=== PATIENT | female | born 1940 | race Caucasian/White ===

== ENCOUNTER 2021-11-26 13:18 | Observation (INO) ==
[2021-11-26] MEDS ORDERED: 0.9 % Sodium Chloride 1,000 ML IVC ONE (13:49)
[2021-11-26 14:30] LABS: Basophils % 0.5 %; Eosinophils % 0.4 %; Hematocrit 46.4 % (35.3-44.9); Hemoglobin 15.1 g/dL (11.5-15.4); Immature Granulocytes % 0.5 % (0-4); Lymphocytes # 1.6 K/mcL (0.6-4.6); Mean Corpuscular HGB Conc 32.5 g/dL (31.6-35.5); Mean Corpuscular Volume 101.3 fL (83.0-100.0); Mean Platelet Volume 9.9 fL (9.4-12.4); Monocytes # 0.6 K/mcL (0.0-1.3); Monocytes % 11.4 %; Neutrophils # 3.3 K/mcL (1.6-8.9); Platelet Count 270 K/mcL (140-400); Red Blood Count 4.58 M/mcL (3.82-4.97); Segmented Neutrophils % 58.2 %; White Blood Count 5.6 K/mcL (4.3-11.1)
[2021-11-26 14:50] LABS: Alanine Aminotransferase 15 Units/L (7-52); Albumin 3.9 g/dL (3.5-5.7); Albumin/Globulin Ratio 1.5 (1.1-2.2); Alkaline Phosphatase 67 Units/L (34-104); Aspartate Amino Transferase 24 Units/L (13-39); BUN/Creatinine Ratio 17 (6-26); Bilirubin,Direct 0.1 mg/dL (0.0-0.2); Bilirubin,Indirect 0.4 mg/dL (0.0-1.0); Bilirubin,Total 0.5 mg/dL (0.3-1.0); Blood Urea Nitrogen 34 mg/dL (8-23); Calcium 9.3 mg/dL (8.6-10.3); Carbon Dioxide 23 mEq/L (23-29); Chloride 103 mEq/L (98-107); Globulin 2.6 g/dL (2.4-3.5); Glucose 121 mg/dL (70-105); Osmolality,Calculated 287 (280-300); Potassium 5.4 mEq/L (3.5-5.1); Sodium 134 mEq/L (136-145); Total Protein 6.5 g/dL (6.4-8.9); Troponin I < 0.03 ng/mL (< 0.04); eGFR For African Americans 29 (> 60); eGFR For Non-African Americans 24 (> 60)
[2021-11-26] MEDS ORDERED: Ondansetron 4 MG/2 ML VIAL IVP PRN (15:10)
[2021-11-26] MEDS ORDERED: Naloxone 0.4 MG/ML INJ IVP PRN (15:10)
[2021-11-26] MEDS ORDERED: Acetaminophen 325 MG TABLET PO PRN (15:10)
[2021-11-26] MEDS ORDERED: Melatonin 3 MG TABLET PO PRN (15:10)
[2021-11-26] MEDS ORDERED: QUEtiapine Fumarate 25 MG TABLET PO PRN (15:47)
[2021-11-26 16:15] LABS: INR 7.7
[2021-11-26] MEDS: 0.9 % Sodium Chloride 1,000 ML IVC SCH (17:15)
[2021-11-26] MEDS ORDERED: Warfarin perPT PO PRN (18:00)
[2021-11-26 19:00] LABS: Bilirubin,Urine Negative (Negative); Blood,Urine Negative (Negative); Clarity,Urine Cloudy (Clear); Color,Urine Yellow (Yellow); Glucose,Urine (UA) Normal (Normal); Ketones,Urine Trace mg/dL (Negative); Leukocyte Esterase,Urine Moderate (Negative); Nitrite,Urine Positive (Negative); PH,Urine 5.5 pH Units (5.0-8.0); Protein,Urine Negative (Neg-Trace); Specific Gravity,Urine 1.025 (1.010-1.025); Urobilinogen,Urine Normal (Normal)
[2021-11-26 19:06] LABS: Bacteria,Urine Many per hpf (None-Few); RBC,Urine 0-3 per hpf (0-3); Squamous Epithelial Cell,Urine Moderate per hpf (None-Few); WBC,Urine 50-100 per hpf (0-3)
[2021-11-26] MEDS: Metoprolol 100 MG TABLET PO SCH (21:59)
[2021-11-27] MEDS: 0.9 % Sodium Chloride 1,000 ML IVC SCH (05:11)
[2021-11-27] MEDS: Levothyroxine 25 MCG TABLET PO SCH (05:30)
[2021-11-27 07:46] LABS: Basophils % 0.8 %; Eosinophils % 0.5 %; Hematocrit 44.8 % (35.3-44.9); Hemoglobin 14.4 g/dL (11.5-15.4); Immature Granulocytes % 0.5 % (0-4); Lymphocytes # 1.5 K/mcL (0.6-4.6); Lymphocytes % 37.1 %; Mean Corpuscular HGB Conc 32.1 g/dL (31.6-35.5); Mean Corpuscular Hemoglobin 32.9 pg (28.0-33.3); Mean Corpuscular Volume 102.3 fL (83.0-100.0); Mean Platelet Volume 9.9 fL (9.4-12.4); Monocytes # 0.4 K/mcL (0.0-1.3); Monocytes % 10.6 %; Platelet Count 221 K/mcL (140-400); Red Blood Count 4.38 M/mcL (3.82-4.97); Red Cell Distribution Width 12.8 % (11.5-14.5); Segmented Neutrophils % 50.5 %
[2021-11-27 08:06] LABS: Calcium 8.7 mg/dL (8.6-10.3); Magnesium 1.7 mg/dL (1.6-2.6)
[2021-11-27] MEDS: Multivit/Ca/Min/Fe/FA 1 TAB TABLET PO SCH (08:13)
[2021-11-27] MEDS: Cyanocobalamin (B-12) 1,000 MCG TABLET PO SCH (08:14)
[2021-11-27] MEDS: Metoprolol 100 MG TABLET PO SCH ×2 (08:14→20:29)
[2021-11-27] MEDS: amLODIPine 5 MG TABLET PO SCH (08:14)
[2021-11-27 08:45] LABS: INR 6.5; Prothrombin Time 71.1 Seconds (9.4-12.1)
[2021-11-28] MEDS: Levothyroxine 25 MCG TABLET PO SCH (06:14)
[2021-11-28 07:32] VITALS: O2SAT 94
[2021-11-28 08:01] LABS: INR 2.7; Prothrombin Time 29.5 Seconds (9.4-12.1)
[2021-11-28] MEDS: Multivit/Ca/Min/Fe/FA 1 TAB TABLET PO SCH (09:27)
[2021-11-28] MEDS: Metoprolol 100 MG TABLET PO SCH (09:27)
[2021-11-28] MEDS: amLODIPine 5 MG TABLET PO SCH (09:27)
[2021-11-28] MEDS: Cyanocobalamin (B-12) 1,000 MCG TABLET PO SCH (09:27)
[2021-11-28 11:13] VITALS: BP 126/70; PULSE 80; RESP 16; TEMP 98.4
[2021-11-28] MEDS ORDERED: Nitrofurantoin (BID) 100 MG CAPSULE PO SCH (17:00)
== END 2021-11-28 16:39 | disposition other institution (70) ==
LOC: EMEROOPIK 13:18 → INPPIK 13:18
PROVIDERS: ADMIT Internal Medicine; ATTEND Internal Medicine

== ENCOUNTER 2021-11-28 15:08 | Inpatient (IN) ==
[2021-11-28] MEDS ORDERED: Furosemide 40 MG TABLET PO PRN (16:17)
[2021-11-28] MEDS ORDERED: Warfarin perPT PO PRN (18:00)
[2021-11-28] MEDS: Metoprolol 100 MG TABLET PO SCH (21:23)
[2021-11-28] MEDS: Amoxicillin 500 MG CAPSULE PO SCH (21:23)
[2021-11-29] MEDS: Levothyroxine 25 MCG TABLET PO SCH (06:00)
[2021-11-29 07:18] LABS: Basophils % 0.6 %; Eosinophils # 0.1 K/mcL (0.0-0.6); Hematocrit 43.5 % (35.3-44.9); Hemoglobin 14.3 g/dL (11.5-15.4); Immature Granulocytes % 0.4 % (0-4); Lymphocytes # 1.8 K/mcL (0.6-4.6); Lymphocytes % 35.9 %; Mean Corpuscular HGB Conc 32.9 g/dL (31.6-35.5); Mean Corpuscular Hemoglobin 33.2 pg (28.0-33.3); Mean Corpuscular Volume 100.9 fL (83.0-100.0); Mean Platelet Volume 9.6 fL (9.4-12.4); Monocytes # 0.4 K/mcL (0.0-1.3); Neutrophils # 2.6 K/mcL (1.6-8.9); Platelet Count 231 K/mcL (140-400); Red Blood Count 4.31 M/mcL (3.82-4.97); Red Cell Distribution Width 12.6 % (11.5-14.5); Segmented Neutrophils % 54.1 %; White Blood Count 4.9 K/mcL (4.3-11.1)
[2021-11-29 07:35] LABS: BUN/Creatinine Ratio 12 (6-26); Blood Urea Nitrogen 12 mg/dL (8-23); Calcium 9.1 mg/dL (8.6-10.3); Carbon Dioxide 24 mEq/L (23-29); Chloride 107 mEq/L (98-107); Glucose 107 mg/dL (70-105); Osmolality,Calculated 284 (280-300); Potassium 3.6 mEq/L (3.5-5.1); Sodium 137 mEq/L (136-145); eGFR For African Americans > 60 (> 60); eGFR For Non-African Americans 55 (> 60)
[2021-11-29 07:38] LABS: INR 1.8; Prothrombin Time 20.5 Seconds (9.4-12.1)
[2021-11-29] MEDS: amLODIPine 5 MG TABLET PO SCH (09:15)
[2021-11-29] MEDS: Amoxicillin 500 MG CAPSULE PO SCH ×3 (09:15→21:36)
[2021-11-29] MEDS: Cyanocobalamin (B-12) 1,000 MCG TABLET PO SCH (09:16)
[2021-11-29] MEDS: Metoprolol 100 MG TABLET PO SCH ×2 (09:16→21:36)
[2021-11-29] MEDS: Topiramate 25 MG TABLET PO SCH (09:16)
[2021-11-29] MEDS: Multivit/Ca/Min/Fe/FA 1 TAB TABLET PO SCH (09:16)
[2021-11-29 09:56] LABS: C-Reactive Protein < 5 mg/L (Less than 10)
[2021-11-29] MEDS ORDERED: *HR* Warfarin 1 MG TABLET PO ONE (18:00)
[2021-11-30] MEDS: Levothyroxine 25 MCG TABLET PO SCH (05:44)
[2021-11-30 07:47] LABS: INR 1.5; Prothrombin Time 16.2 Seconds (9.4-12.1)
[2021-11-30] MEDS: Amoxicillin 500 MG CAPSULE PO SCH ×3 (08:21→20:31)
[2021-11-30] MEDS: Metoprolol 100 MG TABLET PO SCH ×2 (08:21→20:31)
[2021-11-30] MEDS: Topiramate 25 MG TABLET PO SCH (08:22)
[2021-11-30] MEDS: Cyanocobalamin (B-12) 1,000 MCG TABLET PO SCH (08:22)
[2021-11-30] MEDS: amLODIPine 5 MG TABLET PO SCH (08:22)
[2021-11-30] MEDS: Multivit/Ca/Min/Fe/FA 1 TAB TABLET PO SCH (08:23)
[2021-11-30] MEDS ORDERED: *HR* Warfarin 2 MG TABLET PO ONE (18:00)
[2021-12-01] MEDS: Levothyroxine 25 MCG TABLET PO SCH (06:11)
[2021-12-01 07:49] LABS: INR 1.3; Prothrombin Time 14.9 Seconds (9.4-12.1)
[2021-12-01] MEDS: Multivit/Ca/Min/Fe/FA 1 TAB TABLET PO SCH (09:12)
[2021-12-01] MEDS: Metoprolol 100 MG TABLET PO SCH ×2 (09:12→21:25)
[2021-12-01] MEDS: Cyanocobalamin (B-12) 1,000 MCG TABLET PO SCH (09:12)
[2021-12-01] MEDS: Topiramate 25 MG TABLET PO SCH (09:12)
[2021-12-01] MEDS: amLODIPine 5 MG TABLET PO SCH (09:12)
[2021-12-01] MEDS: Amoxicillin 500 MG CAPSULE PO SCH ×3 (09:12→21:25)
[2021-12-01] MEDS: Acetaminophen 325 MG TABLET PO PRN (09:21)
[2021-12-01] MEDS ORDERED: Ondansetron Oral Soln 2 MG/2.5 ML ORAL.SYG PO PRN (09:49)
[2021-12-01] MEDS ORDERED: Ondansetron ODT 4 MG TAB.RAPDIS SL PRN (09:56)
[2021-12-01] MEDS ORDERED: *HR* Warfarin 2 MG TABLET PO ONE (18:00)
[2021-12-02] MEDS: Levothyroxine 25 MCG TABLET PO SCH (05:43)
[2021-12-02] MEDS: Multivit/Ca/Min/Fe/FA 1 TAB TABLET PO SCH (08:03)
[2021-12-02] MEDS: Amoxicillin 500 MG CAPSULE PO SCH ×3 (08:03→20:57)
[2021-12-02] MEDS: Topiramate 25 MG TABLET PO SCH (08:03)
[2021-12-02] MEDS: Cyanocobalamin (B-12) 1,000 MCG TABLET PO SCH (08:03)
[2021-12-02] MEDS: Metoprolol 100 MG TABLET PO SCH ×2 (08:04→20:57)
[2021-12-02] MEDS: amLODIPine 5 MG TABLET PO SCH (08:04)
[2021-12-02 08:16] LABS: INR 1.4; Prothrombin Time 15.9 Seconds (9.4-12.1)
[2021-12-02] MEDS ORDERED: *HR* Warfarin 5 MG TABLET PO ONE (18:00)
[2021-12-03] MEDS: Levothyroxine 25 MCG TABLET PO SCH (04:51)
[2021-12-03 08:56] LABS: INR 1.9; Prothrombin Time 21.1 Seconds (9.4-12.1)
[2021-12-03 08:57] LABS: Basophils % 0.5 %; Calcium 9.8 mg/dL (8.6-10.3); Eosinophils # 0.1 K/mcL (0.0-0.6); Eosinophils % 1.2 %; Hematocrit 45.5 % (35.3-44.9); Hemoglobin 14.8 g/dL (11.5-15.4); Immature Granulocytes % 0.4 % (0-4); Lymphocytes # 1.9 K/mcL (0.6-4.6); Lymphocytes % 22.4 %; Mean Corpuscular HGB Conc 32.5 g/dL (31.6-35.5); Mean Corpuscular Hemoglobin 33.7 pg (28.0-33.3); Mean Corpuscular Volume 103.6 fL (83.0-100.0); Mean Platelet Volume 10.1 fL (9.4-12.4); Monocytes # 0.5 K/mcL (0.0-1.3); Monocytes % 6.4 %; Neutrophils # 5.9 K/mcL (1.6-8.9); Platelet Count 293 K/mcL (140-400); Potassium 4.9 mEq/L (3.5-5.1); Red Blood Count 4.39 M/mcL (3.82-4.97); Red Cell Distribution Width 12.5 % (11.5-14.5); Segmented Neutrophils % 69.1 %; White Blood Count 8.5 K/mcL (4.3-11.1)
[2021-12-03] MEDS: Amoxicillin 500 MG CAPSULE PO SCH ×3 (10:19→21:41)
[2021-12-03] MEDS: Topiramate 25 MG TABLET PO SCH (10:19)
[2021-12-03] MEDS: Multivit/Ca/Min/Fe/FA 1 TAB TABLET PO SCH (10:20)
[2021-12-03] MEDS: Cyanocobalamin (B-12) 1,000 MCG TABLET PO SCH (10:20)
[2021-12-03] MEDS: amLODIPine 5 MG TABLET PO SCH (10:20)
[2021-12-03] MEDS: Metoprolol 100 MG TABLET PO SCH ×2 (10:21→21:40)
[2021-12-03] MEDS ORDERED: *HR* Warfarin 2 MG TABLET PO ONE (18:00)
[2021-12-04] MEDS: Levothyroxine 25 MCG TABLET PO SCH (05:05)
[2021-12-04 09:52] LABS: INR 2.1; Prothrombin Time 23.2 Seconds (9.4-12.1)
[2021-12-04] MEDS: Amoxicillin 500 MG CAPSULE PO SCH ×3 (10:01→20:37)
[2021-12-04] MEDS: Topiramate 25 MG TABLET PO SCH (10:01)
[2021-12-04] MEDS: Cyanocobalamin (B-12) 1,000 MCG TABLET PO SCH (10:02)
[2021-12-04] MEDS: Multivit/Ca/Min/Fe/FA 1 TAB TABLET PO SCH (10:02)
[2021-12-04] MEDS: Metoprolol 100 MG TABLET PO SCH ×2 (10:02→20:38)
[2021-12-04] MEDS: amLODIPine 5 MG TABLET PO SCH (10:02)
[2021-12-04] MEDS ORDERED: *HR* Warfarin 3 MG TABLET PO ONE (18:00)
[2021-12-05] MEDS: Levothyroxine 25 MCG TABLET PO SCH ×2 (06:05→10:18)
[2021-12-05 07:58] LABS: INR 1.6; Prothrombin Time 18.3 Seconds (9.4-12.1)
[2021-12-05] MEDS: Multivit/Ca/Min/Fe/FA 1 TAB TABLET PO SCH (10:18)
[2021-12-05] MEDS: Cyanocobalamin (B-12) 1,000 MCG TABLET PO SCH (10:18)
[2021-12-05] MEDS: amLODIPine 5 MG TABLET PO SCH (10:18)
[2021-12-05] MEDS: Topiramate 25 MG TABLET PO SCH (10:18)
[2021-12-05] MEDS: Metoprolol 100 MG TABLET PO SCH ×3 (10:18→23:07)
[2021-12-05] MEDS ORDERED: *HR* Warfarin 5 MG TABLET PO ONE (18:00)
[2021-12-06 07:52] LABS: INR 1.6; Prothrombin Time 17.6 Seconds (9.4-12.1)
[2021-12-06] MEDS: Multivit/Ca/Min/Fe/FA 1 TAB TABLET PO SCH (08:43)
[2021-12-06] MEDS: Cyanocobalamin (B-12) 1,000 MCG TABLET PO SCH (08:45)
[2021-12-06] MEDS: Topiramate 25 MG TABLET PO SCH (08:45)
[2021-12-06] MEDS: Metoprolol 100 MG TABLET PO SCH ×2 (08:48→21:19)
[2021-12-06] MEDS: amLODIPine 5 MG TABLET PO SCH (08:48)
[2021-12-06] MEDS ORDERED: Nitroglycerin 0.4 MG TAB.SUBL SL PRN (15:36)
[2021-12-06 15:47] LABS: Basophils % 0.4 %; Eosinophils # 0.1 K/mcL (0.0-0.6); Eosinophils % 1.2 %; Hematocrit 41.7 % (35.3-44.9); Hemoglobin 13.5 g/dL (11.5-15.4); Immature Granulocytes % 0.2 % (0-4); Lymphocytes # 2.3 K/mcL (0.6-4.6); Lymphocytes % 25.2 %; Mean Corpuscular HGB Conc 32.4 g/dL (31.6-35.5); Mean Corpuscular Hemoglobin 33.4 pg (28.0-33.3); Mean Corpuscular Volume 103.2 fL (83.0-100.0); Monocytes # 0.7 K/mcL (0.0-1.3); Monocytes % 7.5 %; Platelet Count 265 K/mcL (140-400); Red Blood Count 4.04 M/mcL (3.82-4.97); Red Cell Distribution Width 12.9 % (11.5-14.5); Segmented Neutrophils % 65.5 %; White Blood Count 9.2 K/mcL (4.3-11.1)
[2021-12-06 16:06] LABS: Calcium 9.3 mg/dL (8.6-10.3); Potassium 4.3 mEq/L (3.5-5.1)
[2021-12-06] MEDS ORDERED: *HR* Warfarin 5 MG TABLET PO ONE (18:00)
[2021-12-07] MEDS: Levothyroxine 25 MCG TABLET PO SCH (05:48)
[2021-12-07 07:46] LABS: INR 1.7; Prothrombin Time 18.6 Seconds (9.4-12.1)
[2021-12-07] MEDS: amLODIPine 5 MG TABLET PO SCH (08:45)
[2021-12-07] MEDS: Multivit/Ca/Min/Fe/FA 1 TAB TABLET PO SCH (08:45)
[2021-12-07] MEDS: Topiramate 25 MG TABLET PO SCH (08:46)
[2021-12-07] MEDS: Metoprolol 100 MG TABLET PO SCH ×2 (08:46→21:54)
[2021-12-07] MEDS: Cyanocobalamin (B-12) 1,000 MCG TABLET PO SCH (08:46)
[2021-12-07] MEDS ORDERED: *HR* Warfarin 5 MG TABLET PO ONE (18:00)
[2021-12-08] MEDS: Levothyroxine 25 MCG TABLET PO SCH (05:42)
[2021-12-08 07:32] LABS: INR 2.2; Prothrombin Time 24.5 Seconds (9.4-12.1)
[2021-12-08] MEDS: Multivit/Ca/Min/Fe/FA 1 TAB TABLET PO SCH (10:20)
[2021-12-08] MEDS: Topiramate 25 MG TABLET PO SCH (10:20)
[2021-12-08] MEDS: Cyanocobalamin (B-12) 1,000 MCG TABLET PO SCH (10:21)
[2021-12-08] MEDS: amLODIPine 5 MG TABLET PO SCH (10:21)
[2021-12-08] MEDS: Metoprolol 100 MG TABLET PO SCH ×2 (10:21→20:15)
[2021-12-08] MEDS: Acetaminophen 325 MG TABLET PO PRN (15:36)
[2021-12-08] MEDS ORDERED: *HR* Warfarin 5 MG TABLET PO ONE (18:00)
[2021-12-09] MEDS: Levothyroxine 25 MCG TABLET PO SCH (05:37)
[2021-12-09 07:05] LABS: INR 2.2; Prothrombin Time 24.9 Seconds (9.4-12.1)
[2021-12-09] MEDS: Cyanocobalamin (B-12) 1,000 MCG TABLET PO SCH (08:15)
[2021-12-09] MEDS: Multivit/Ca/Min/Fe/FA 1 TAB TABLET PO SCH (08:15)
[2021-12-09] MEDS: Metoprolol 100 MG TABLET PO SCH ×2 (08:16→20:38)
[2021-12-09] MEDS: Topiramate 25 MG TABLET PO SCH (08:16)
[2021-12-09] MEDS: amLODIPine 5 MG TABLET PO SCH (08:16)
[2021-12-09 17:52] LABS: Bilirubin,Urine Negative (Negative); Blood,Urine Negative (Negative); Clarity,Urine Clear (Clear); Color,Urine Yellow (Yellow); Glucose,Urine (UA) Normal (Normal); Ketones,Urine Negative (Negative); Leukocyte Esterase,Urine Negative (Negative); Nitrite,Urine Negative (Negative); Protein,Urine Negative (Neg-Trace); Urobilinogen,Urine Normal (Normal)
[2021-12-09] MEDS ORDERED: *HR* Warfarin 5 MG TABLET PO ONE (18:00)
[2021-12-10] MEDS: Levothyroxine 25 MCG TABLET PO SCH (04:12)
[2021-12-10 08:03] LABS: INR 2.3; Prothrombin Time 25.4 Seconds (9.4-12.1)
[2021-12-10] MEDS: Multivit/Ca/Min/Fe/FA 1 TAB TABLET PO SCH (08:48)
[2021-12-10] MEDS: Topiramate 25 MG TABLET PO SCH (08:48)
[2021-12-10] MEDS: amLODIPine 5 MG TABLET PO SCH (08:49)
[2021-12-10] MEDS: Metoprolol 100 MG TABLET PO SCH ×2 (08:49→20:05)
[2021-12-10] MEDS: Cyanocobalamin (B-12) 1,000 MCG TABLET PO SCH (08:49)
[2021-12-10] MEDS ORDERED: *HR* Warfarin 5 MG TABLET PO ONE (18:00)
[2021-12-11] MEDS: Levothyroxine 25 MCG TABLET PO SCH (05:42)
[2021-12-11] MEDS: Cyanocobalamin (B-12) 1,000 MCG TABLET PO SCH (09:00)
[2021-12-11] MEDS: Multivit/Ca/Min/Fe/FA 1 TAB TABLET PO SCH (09:00)
[2021-12-11] MEDS: Metoprolol 100 MG TABLET PO SCH ×2 (09:00→20:22)
[2021-12-11] MEDS: Topiramate 25 MG TABLET PO SCH (09:00)
[2021-12-11] MEDS: amLODIPine 5 MG TABLET PO SCH (09:00)
[2021-12-11] MEDS: Acetaminophen 325 MG TABLET PO PRN (09:05)
[2021-12-11 09:54] LABS: INR 2.2; Prothrombin Time 24.7 Seconds (9.4-12.1)
[2021-12-11] MEDS ORDERED: *HR* Warfarin 5 MG TABLET PO ONE (18:00)
[2021-12-12] MEDS: Levothyroxine 25 MCG TABLET PO SCH (05:31)
[2021-12-12] MEDS: Multivit/Ca/Min/Fe/FA 1 TAB TABLET PO SCH (08:02)
[2021-12-12] MEDS: Topiramate 25 MG TABLET PO SCH (08:03)
[2021-12-12] MEDS: Cyanocobalamin (B-12) 1,000 MCG TABLET PO SCH (08:03)
[2021-12-12] MEDS: Metoprolol 100 MG TABLET PO SCH ×2 (08:03→20:10)
[2021-12-12] MEDS: amLODIPine 5 MG TABLET PO SCH (08:03)
[2021-12-12 09:20] LABS: INR 2.3; Prothrombin Time 25.4 Seconds (9.4-12.1)
[2021-12-12] MEDS ORDERED: *HR* Warfarin 5 MG TABLET PO ONE (18:00)
[2021-12-13] MEDS: Levothyroxine 25 MCG TABLET PO SCH (05:28)
[2021-12-13 07:15] LABS: INR 2.5; Prothrombin Time 27.8 Seconds (9.4-12.1)
[2021-12-13] MEDS: Cyanocobalamin (B-12) 1,000 MCG TABLET PO SCH (08:27)
[2021-12-13] MEDS: Multivit/Ca/Min/Fe/FA 1 TAB TABLET PO SCH (08:27)
[2021-12-13] MEDS: Topiramate 25 MG TABLET PO SCH (08:27)
[2021-12-13] MEDS: amLODIPine 5 MG TABLET PO SCH (08:27)
[2021-12-13] MEDS: Metoprolol 100 MG TABLET PO SCH ×2 (08:28→20:28)
[2021-12-13] MEDS ORDERED: *HR* Warfarin 5 MG TABLET PO ONE (18:00)
[2021-12-14] MEDS: Levothyroxine 25 MCG TABLET PO SCH (06:06)
[2021-12-14 07:47] LABS: INR 2.6; Prothrombin Time 29.3 Seconds (9.4-12.1)
[2021-12-14] MEDS: Multivit/Ca/Min/Fe/FA 1 TAB TABLET PO SCH (09:03)
[2021-12-14] MEDS: Topiramate 25 MG TABLET PO SCH (09:03)
[2021-12-14] MEDS: amLODIPine 5 MG TABLET PO SCH (09:03)
[2021-12-14] MEDS: Cyanocobalamin (B-12) 1,000 MCG TABLET PO SCH (09:03)
[2021-12-14] MEDS: Metoprolol 100 MG TABLET PO SCH ×2 (09:04→19:58)
[2021-12-14] MEDS ORDERED: *HR* Warfarin 5 MG TABLET PO ONE (18:00)
[2021-12-15] MEDS: Levothyroxine 25 MCG TABLET PO SCH (06:22)
[2021-12-15 07:21] LABS: Basophils # 0.1 K/mcL (0.0-0.2); Basophils % 0.8 %; Eosinophils # 0.1 K/mcL (0.0-0.6); Eosinophils % 1.8 %; Hematocrit 41.9 % (35.3-44.9); Hemoglobin 13.3 g/dL (11.5-15.4); Immature Granulocytes % 0.5 % (0-4); Lymphocytes % 24.7 %; Mean Corpuscular HGB Conc 31.7 g/dL (31.6-35.5); Mean Corpuscular Hemoglobin 33.2 pg (28.0-33.3); Mean Corpuscular Volume 104.5 fL (83.0-100.0); Mean Platelet Volume 10.1 fL (9.4-12.4); Monocytes # 0.7 K/mcL (0.0-1.3); Monocytes % 8.3 %; Neutrophils # 5.1 K/mcL (1.6-8.9); Platelet Count 290 K/mcL (140-400); Red Blood Count 4.01 M/mcL (3.82-4.97); Red Cell Distribution Width 13.1 % (11.5-14.5); Segmented Neutrophils % 63.9 %; White Blood Count 7.9 K/mcL (4.3-11.1)
[2021-12-15 07:40] LABS: INR 3.3; Prothrombin Time 36.2 Seconds (9.4-12.1)
[2021-12-15 07:48] LABS: BUN/Creatinine Ratio 12 (6-26); Blood Urea Nitrogen 13 mg/dL (8-23); Carbon Dioxide 21 mEq/L (23-29); Chloride 110 mEq/L (98-107); Glucose 127 mg/dL (70-105); Osmolality,Calculated 288 (280-300); Potassium 4.2 mEq/L (3.5-5.1); Sodium 138 mEq/L (136-145); eGFR For African Americans > 60 (> 60); eGFR For Non-African Americans 50 (> 60)
[2021-12-15] MEDS: Multivit/Ca/Min/Fe/FA 1 TAB TABLET PO SCH (08:36)
[2021-12-15] MEDS: amLODIPine 5 MG TABLET PO SCH (08:37)
[2021-12-15] MEDS: Metoprolol 100 MG TABLET PO SCH ×2 (08:37→19:56)
[2021-12-15] MEDS: Cyanocobalamin (B-12) 1,000 MCG TABLET PO SCH (08:37)
[2021-12-15] MEDS: Topiramate 25 MG TABLET PO SCH (08:37)
[2021-12-16] MEDS: Acetaminophen 325 MG TABLET PO PRN (06:18)
[2021-12-16] MEDS: Levothyroxine 25 MCG TABLET PO SCH (06:18)
[2021-12-16 07:47] LABS: INR 2.1; Prothrombin Time 23.4 Seconds (9.4-12.1)
[2021-12-16] MEDS: Cyanocobalamin (B-12) 1,000 MCG TABLET PO SCH (08:06)
[2021-12-16] MEDS: amLODIPine 5 MG TABLET PO SCH (08:06)
[2021-12-16] MEDS: Topiramate 25 MG TABLET PO SCH (08:06)
[2021-12-16] MEDS: Multivit/Ca/Min/Fe/FA 1 TAB TABLET PO SCH (08:06)
[2021-12-16] MEDS: Metoprolol 100 MG TABLET PO SCH ×2 (08:06→21:42)
[2021-12-16] MEDS ORDERED: *HR* Warfarin 2.5 MG TABLET PO ONE (18:00)
[2021-12-16 20:38] VITALS: RESP 20; O2SAT 94
[2021-12-17] MEDS: Levothyroxine 25 MCG TABLET PO SCH (05:48)
[2021-12-17 07:24] VITALS: BP 132/72; PULSE 79; TEMP 99
[2021-12-17] MEDS: Topiramate 25 MG TABLET PO SCH (08:01)
[2021-12-17] MEDS: Metoprolol 100 MG TABLET PO SCH (08:01)
[2021-12-17] MEDS: Cyanocobalamin (B-12) 1,000 MCG TABLET PO SCH (08:02)
[2021-12-17] MEDS: amLODIPine 5 MG TABLET PO SCH (08:02)
[2021-12-17] MEDS: Multivit/Ca/Min/Fe/FA 1 TAB TABLET PO SCH (08:02)
[2021-12-17 08:59] LABS: INR 1.6; Prothrombin Time 17.5 Seconds (9.4-12.1)
[2021-12-17] MEDS ORDERED: *HR* Warfarin 5 MG TABLET PO ONE (18:00)
== END 2021-12-17 10:35 | disposition home health service (06) ==
LOC: INPPIK 16:44
PROVIDERS: ADMIT Internal Medicine; ATTEND Internal Medicine

== ENCOUNTER 2022-06-02 05:55 | Observation (INO) ==
[2022-06-02 06:25] LABS: Basophils % 0.4 %; Eosinophils # 0.1 K/mcL (0.0-0.6); Eosinophils % 1.4 %; Hematocrit 43.5 % (35.3-44.9); Hemoglobin 14.4 g/dL (11.5-15.4); Immature Granulocytes % 0.3 % (0-4); Lymphocytes # 1.7 K/mcL (0.6-4.6); Lymphocytes % 18.3 %; Mean Corpuscular HGB Conc 33.1 g/dL (31.6-35.5); Mean Corpuscular Hemoglobin 33.5 pg (28.0-33.3); Mean Corpuscular Volume 101.2 fL (83.0-100.0); Mean Platelet Volume 9.6 fL (9.4-12.4); Monocytes # 0.7 K/mcL (0.0-1.3); Neutrophils # 6.6 K/mcL (1.6-8.9); Platelet Count 269 K/mcL (140-400); Red Cell Distribution Width 12.1 % (11.5-14.5); Segmented Neutrophils % 71.6 %; White Blood Count 9.3 K/mcL (4.3-11.1)
[2022-06-02 06:29] LABS: Bilirubin,Urine Negative (Negative); Blood,Urine Negative (Negative); Clarity,Urine Slightly Cloudy (Clear); Color,Urine Yellow (Yellow); Glucose,Urine (UA) Normal (Normal); Ketones,Urine Negative (Negative); Leukocyte Esterase,Urine Negative (Negative); Nitrite,Urine Negative (Negative); Protein,Urine Negative (Neg-Trace); Specific Gravity,Urine 1.025 (1.010-1.025); Urobilinogen,Urine Normal (Normal)
[2022-06-02 06:36] LABS: Amorphous Sediment,Urine Many per hpf (None-Few)
[2022-06-02 06:37] LABS: INR 2.8; Prothrombin Time 30.8 Seconds (9.4-12.1)
[2022-06-02 06:37] LABS: Bacteria,Urine Few per hpf (None-Few)
[2022-06-02 06:39] LABS: Activated Partial Thrombo Time 36.1 Seconds (26.0-36.0)
[2022-06-02 06:47] LABS: Albumin 3.6 g/dL (3.5-5.7); Albumin/Globulin Ratio 1.3 (1.1-2.2); Bilirubin,Direct 0.1 mg/dL (0.0-0.2); Bilirubin,Indirect 0.4 mg/dL (0.0-1.0); Bilirubin,Total 0.5 mg/dL (0.3-1.0); Calcium 9.2 mg/dL (8.6-10.3); Globulin 2.8 g/dL (2.4-3.5); Potassium 4.2 mEq/L (3.5-5.1); Total Protein 6.4 g/dL (6.4-8.9)
[2022-06-02] MEDS ORDERED: Naloxone 0.4 MG/ML INJ IVP PRN (09:59)
[2022-06-02] MEDS ORDERED: Furosemide 40 MG TABLET PO PRN (10:01)
[2022-06-02] MEDS ORDERED: Melatonin 3 MG TABLET PO PRN (10:06)
[2022-06-02] MEDS ORDERED: Ondansetron 4 MG/2 ML VIAL IVP PRN (10:06)
[2022-06-02] MEDS ORDERED: MOM Conc 10 ML UD.LIQ PO PRN (10:06)
[2022-06-02] MEDS ORDERED: levoFLOXacin 500 MG TABLET PO ONE (10:17)
[2022-06-02] MEDS: Cyanocobalamin (B-12) 1,000 MCG TABLET PO SCH (11:40)
[2022-06-02] MEDS: amLODIPine 5 MG TABLET PO SCH (11:41)
[2022-06-02] MEDS: Sennosides/Docusate Sodium TABLET PO SCH ×2 (11:41→21:28)
[2022-06-02] MEDS: Multivit/Ca/Min/Fe/FA 1 TAB TABLET PO SCH (11:41)
[2022-06-02] MEDS: Topiramate 25 MG TABLET PO SCH (11:41)
[2022-06-02] MEDS: Metoprolol 100 MG TABLET PO SCH ×2 (11:47→21:28)
[2022-06-02] MEDS ORDERED: Warfarin perPT PO PRN (18:00)
[2022-06-02] MEDS ORDERED: *HR* Warfarin 2.5 MG TABLET PO ONE (18:00)
[2022-06-02] MEDS: Potassium Chloride Elixir 20 MEQ/15 ML UDC PO SCH (19:02)
[2022-06-03 06:45] LABS: Hematocrit 42.9 % (35.3-44.9); Hemoglobin 14.2 g/dL (11.5-15.4); Mean Corpuscular HGB Conc 33.1 g/dL (31.6-35.5); Mean Corpuscular Hemoglobin 33.3 pg (28.0-33.3); Mean Corpuscular Volume 100.5 fL (83.0-100.0); Mean Platelet Volume 10.1 fL (9.4-12.4); Platelet Count 279 K/mcL (140-400); Red Blood Count 4.27 M/mcL (3.82-4.97); Red Cell Distribution Width 11.9 % (11.5-14.5)
[2022-06-03] MEDS: Levothyroxine 25 MCG TABLET PO SCH (06:46)
[2022-06-03 06:57] LABS: INR 2.9
[2022-06-03 07:10] LABS: Calcium 9.3 mg/dL (8.6-10.3); Potassium 3.9 mEq/L (3.5-5.1)
[2022-06-03] MEDS: Topiramate 25 MG TABLET PO SCH (10:30)
[2022-06-03] MEDS: Metoprolol 100 MG TABLET PO SCH ×2 (10:30→20:52)
[2022-06-03] MEDS: Cyanocobalamin (B-12) 1,000 MCG TABLET PO SCH (10:30)
[2022-06-03] MEDS: Sennosides/Docusate Sodium TABLET PO SCH ×2 (10:30→20:52)
[2022-06-03] MEDS: levoFLOXacin 250 MG TABLET PO SCH (10:31)
[2022-06-03] MEDS: Multivit/Ca/Min/Fe/FA 1 TAB TABLET PO SCH (10:31)
[2022-06-03] MEDS: amLODIPine 5 MG TABLET PO SCH (10:31)
[2022-06-03] MEDS ORDERED: *HR* Warfarin 1 MG TABLET PO ONE (18:00)
[2022-06-03] MEDS: polyethylene glycoL 3350 17 GM POWD.PACK PO SCH (18:45)
[2022-06-03] MEDS: Potassium Chloride Elixir 20 MEQ/15 ML UDC PO SCH (18:46)
[2022-06-04] MEDS: Levothyroxine 25 MCG TABLET PO SCH (06:08)
[2022-06-04 07:52] LABS: Hematocrit 46.9 % (35.3-44.9); Hemoglobin 15.3 g/dL (11.5-15.4); Mean Corpuscular HGB Conc 32.6 g/dL (31.6-35.5); Mean Corpuscular Hemoglobin 33.1 pg (28.0-33.3); Mean Corpuscular Volume 101.5 fL (83.0-100.0); Mean Platelet Volume 11.4 fL (9.4-12.4); Platelet Count 271 K/mcL (140-400); Red Blood Count 4.62 M/mcL (3.82-4.97); White Blood Count 7.6 K/mcL (4.3-11.1)
[2022-06-04 08:02] LABS: Prothrombin Time 22.1 Seconds (9.4-12.1)
[2022-06-04 08:13] LABS: Calcium 9.4 mg/dL (8.6-10.3); Potassium 3.9 mEq/L (3.5-5.1)
[2022-06-04] MEDS: levoFLOXacin 250 MG TABLET PO SCH (10:17)
[2022-06-04] MEDS: Topiramate 25 MG TABLET PO SCH (10:17)
[2022-06-04] MEDS: amLODIPine 5 MG TABLET PO SCH (10:17)
[2022-06-04] MEDS: Multivit/Ca/Min/Fe/FA 1 TAB TABLET PO SCH (10:17)
[2022-06-04] MEDS: Sennosides/Docusate Sodium TABLET PO SCH ×2 (10:17→19:58)
[2022-06-04] MEDS: Metoprolol 100 MG TABLET PO SCH ×2 (10:18→19:58)
[2022-06-04] MEDS: Cyanocobalamin (B-12) 1,000 MCG TABLET PO SCH (10:18)
[2022-06-04] MEDS: Potassium Chloride Elixir 20 MEQ/15 ML UDC PO SCH ×2 (10:18→18:39)
[2022-06-04] MEDS: polyethylene glycoL 3350 17 GM POWD.PACK PO SCH (10:20)
[2022-06-04] MEDS ORDERED: *HR* Warfarin 5 MG TABLET PO ONE (18:00)
[2022-06-05] MEDS: Levothyroxine 25 MCG TABLET PO SCH (06:11)
[2022-06-05 07:33] LABS: Hematocrit 42.8 % (35.3-44.9); Mean Corpuscular HGB Conc 32.7 g/dL (31.6-35.5); Mean Corpuscular Hemoglobin 33.4 pg (28.0-33.3); Mean Corpuscular Volume 102.1 fL (83.0-100.0); Mean Platelet Volume 10.3 fL (9.4-12.4); Platelet Count 277 K/mcL (140-400); Red Blood Count 4.19 M/mcL (3.82-4.97); White Blood Count 8.1 K/mcL (4.3-11.1)
[2022-06-05 07:51] LABS: INR 1.6; Prothrombin Time 18.1 Seconds (9.4-12.1)
[2022-06-05 08:04] LABS: Calcium 9.3 mg/dL (8.6-10.3)
[2022-06-05] MEDS: amLODIPine 5 MG TABLET PO SCH (09:55)
[2022-06-05] MEDS: Multivit/Ca/Min/Fe/FA 1 TAB TABLET PO SCH (09:55)
[2022-06-05] MEDS: Sennosides/Docusate Sodium TABLET PO SCH ×2 (09:55→19:46)
[2022-06-05] MEDS: Topiramate 25 MG TABLET PO SCH (09:55)
[2022-06-05] MEDS: Metoprolol 100 MG TABLET PO SCH ×2 (09:55→19:46)
[2022-06-05] MEDS: Potassium Chloride Elixir 20 MEQ/15 ML UDC PO SCH ×2 (09:56→17:47)
[2022-06-05] MEDS: polyethylene glycoL 3350 17 GM POWD.PACK PO SCH (09:56)
[2022-06-05] MEDS: Cyanocobalamin (B-12) 1,000 MCG TABLET PO SCH (09:56)
[2022-06-05] MEDS: levoFLOXacin 250 MG TABLET PO SCH (09:56)
[2022-06-05] MEDS: Acetaminophen 325 MG TABLET PO PRN (09:58)
[2022-06-05] MEDS ORDERED: *HR* Warfarin 5 MG TABLET PO ONE (18:00)
[2022-06-06 06:41] LABS: INR 1.9; Prothrombin Time 21.1 Seconds (9.4-12.1)
[2022-06-06] MEDS: Levothyroxine 25 MCG TABLET PO SCH (06:50)
[2022-06-06] MEDS: Potassium Chloride Elixir 20 MEQ/15 ML UDC PO SCH ×2 (08:58→20:12)
[2022-06-06] MEDS: Multivit/Ca/Min/Fe/FA 1 TAB TABLET PO SCH (08:58)
[2022-06-06] MEDS: levoFLOXacin 250 MG TABLET PO SCH (08:59)
[2022-06-06] MEDS: Topiramate 25 MG TABLET PO SCH (08:59)
[2022-06-06] MEDS: amLODIPine 5 MG TABLET PO SCH (09:00)
[2022-06-06] MEDS: Sennosides/Docusate Sodium TABLET PO SCH ×2 (09:00→20:11)
[2022-06-06] MEDS: polyethylene glycoL 3350 17 GM POWD.PACK PO SCH (09:00)
[2022-06-06] MEDS: Cyanocobalamin (B-12) 1,000 MCG TABLET PO SCH (09:00)
[2022-06-06] MEDS: Metoprolol 100 MG TABLET PO SCH ×2 (09:00→20:11)
[2022-06-06] MEDS ORDERED: *HR* Warfarin 5 MG TABLET PO ONE (18:00)
[2022-06-07] MEDS: Acetaminophen 325 MG TABLET PO PRN (01:25)
[2022-06-07 02:58] VITALS: O2SAT 93
[2022-06-07] MEDS: Levothyroxine 25 MCG TABLET PO SCH (06:19)
[2022-06-07 06:40] VITALS: BP 133/81; PULSE 73; RESP 15; TEMP 98.8
[2022-06-07 07:55] LABS: INR 1.9; Prothrombin Time 20.9 Seconds (9.4-12.1)
[2022-06-07] MEDS: Sennosides/Docusate Sodium TABLET PO SCH (10:35)
[2022-06-07] MEDS: Metoprolol 100 MG TABLET PO SCH (10:35)
[2022-06-07] MEDS: Topiramate 25 MG TABLET PO SCH (10:36)
[2022-06-07] MEDS: amLODIPine 5 MG TABLET PO SCH (10:36)
[2022-06-07] MEDS: Cyanocobalamin (B-12) 1,000 MCG TABLET PO SCH (10:36)
[2022-06-07] MEDS: Potassium Chloride Elixir 20 MEQ/15 ML UDC PO SCH (10:36)
[2022-06-07] MEDS: Multivit/Ca/Min/Fe/FA 1 TAB TABLET PO SCH (10:36)
[2022-06-07] MEDS: levoFLOXacin 250 MG TABLET PO SCH (10:36)
[2022-06-07] MEDS: polyethylene glycoL 3350 17 GM POWD.PACK PO SCH (10:37)
[2022-06-07] MEDS ORDERED: *HR* Warfarin 5 MG TABLET PO ONE (18:00)
== END 2022-06-07 18:39 | disposition other institution (70) ==
LOC: INPPIK 05:55 → EMEROOPIK 05:55 → INPPIK 10:42
PROVIDERS: ADMIT Registered Nurse Emergency; ATTEND Registered Nurse Emergency

== ENCOUNTER 2022-06-07 12:11 | Inpatient (IN) ==
[2022-06-07] MEDS ORDERED: Furosemide 40 MG TABLET PO PRN (15:39)
[2022-06-07] MEDS ORDERED: Warfarin perPT PO PRN (23:16)
[2022-06-07] MEDS ORDERED: *HR* Warfarin 5 MG TABLET PO ONE (23:30)
[2022-06-08] MEDS: Sennosides/Docusate Sodium TABLET PO SCH ×3 (00:44→21:14)
[2022-06-08] MEDS: Metoprolol 100 MG TABLET PO SCH ×3 (00:45→21:14)
[2022-06-08] MEDS: Levothyroxine 25 MCG TABLET PO SCH (06:12)
[2022-06-08 07:28] LABS: Basophils # 0.1 K/mcL (0.0-0.2); Basophils % 0.7 %; Eosinophils # 0.1 K/mcL (0.0-0.6); Eosinophils % 1.4 %; Hemoglobin 14.1 g/dL (11.5-15.4); Immature Granulocytes % 0.5 % (0-4); Lymphocytes % 22.2 %; Mean Corpuscular HGB Conc 32.8 g/dL (31.6-35.5); Mean Corpuscular Hemoglobin 33.3 pg (28.0-33.3); Mean Corpuscular Volume 101.4 fL (83.0-100.0); Mean Platelet Volume 10.4 fL (9.4-12.4); Monocytes # 0.6 K/mcL (0.0-1.3); Neutrophils # 6.1 K/mcL (1.6-8.9); Platelet Count 290 K/mcL (140-400); Red Blood Count 4.24 M/mcL (3.82-4.97); Red Cell Distribution Width 11.9 % (11.5-14.5); Segmented Neutrophils % 68.2 %; White Blood Count 8.9 K/mcL (4.3-11.1)
[2022-06-08 07:38] LABS: INR 1.9; Prothrombin Time 20.8 Seconds (9.4-12.1)
[2022-06-08 07:41] LABS: Calcium 9.3 mg/dL (8.6-10.3); Potassium 4.2 mEq/L (3.5-5.1)
[2022-06-08] MEDS: Topiramate 25 MG TABLET PO SCH (09:53)
[2022-06-08] MEDS: Cyanocobalamin (B-12) 1,000 MCG TABLET PO SCH (09:54)
[2022-06-08] MEDS: levoFLOXacin 250 MG TABLET PO SCH (09:54)
[2022-06-08] MEDS: Multivit/Ca/Min/Fe/FA 1 TAB TABLET PO SCH (09:54)
[2022-06-08] MEDS: amLODIPine 5 MG TABLET PO SCH (09:54)
[2022-06-08] MEDS: polyethylene glycoL 3350 17 GM POWD.PACK PO SCH (09:54)
[2022-06-08] MEDS ORDERED: *HR* Warfarin 3 MG TABLET PO ONE (18:00)
[2022-06-08] MEDS: Acetaminophen 325 MG TABLET PO PRN (21:15)
[2022-06-09] MEDS: Levothyroxine 25 MCG TABLET PO SCH (05:53)
[2022-06-09 08:27] LABS: INR 2.6; Prothrombin Time 28.9 Seconds (9.4-12.1)
[2022-06-09] MEDS: levoFLOXacin 250 MG TABLET PO SCH (08:39)
[2022-06-09] MEDS: Cyanocobalamin (B-12) 1,000 MCG TABLET PO SCH (08:39)
[2022-06-09] MEDS: amLODIPine 5 MG TABLET PO SCH (08:39)
[2022-06-09] MEDS: Multivit/Ca/Min/Fe/FA 1 TAB TABLET PO SCH (08:39)
[2022-06-09] MEDS: Metoprolol 100 MG TABLET PO SCH ×2 (08:39→21:19)
[2022-06-09] MEDS: Topiramate 25 MG TABLET PO SCH (08:40)
[2022-06-09] MEDS: polyethylene glycoL 3350 17 GM POWD.PACK PO SCH (08:40)
[2022-06-09] MEDS: Sennosides/Docusate Sodium TABLET PO SCH ×2 (08:40→21:19)
[2022-06-10] MEDS: Levothyroxine 25 MCG TABLET PO SCH (05:56)
[2022-06-10 06:32] LABS: INR 2.4; Prothrombin Time 26.3 Seconds (9.4-12.1)
[2022-06-10] MEDS: Cyanocobalamin (B-12) 1,000 MCG TABLET PO SCH (08:55)
[2022-06-10] MEDS: amLODIPine 5 MG TABLET PO SCH (08:56)
[2022-06-10] MEDS: Multivit/Ca/Min/Fe/FA 1 TAB TABLET PO SCH (08:56)
[2022-06-10] MEDS: polyethylene glycoL 3350 17 GM POWD.PACK PO SCH (08:56)
[2022-06-10] MEDS: Acetaminophen 325 MG TABLET PO PRN (08:56)
[2022-06-10] MEDS: Sennosides/Docusate Sodium TABLET PO SCH ×2 (08:56→20:04)
[2022-06-10] MEDS: Metoprolol 100 MG TABLET PO SCH ×2 (08:56→20:04)
[2022-06-10] MEDS: Topiramate 25 MG TABLET PO SCH (08:56)
[2022-06-10] MEDS: tiZANidine 4 MG TABLET PO PRN (15:32)
[2022-06-10] MEDS ORDERED: *HR* Warfarin 5 MG TABLET PO ONE (18:00)
[2022-06-11] MEDS: Levothyroxine 25 MCG TABLET PO SCH (06:55)
[2022-06-11 07:53] LABS: Basophils # 0.1 K/mcL (0.0-0.2); Basophils % 0.3 %; Eosinophils # 0.1 K/mcL (0.0-0.6); Eosinophils % 0.4 %; Hematocrit 41.8 % (35.3-44.9); Hemoglobin 13.4 g/dL (11.5-15.4); Immature Granulocytes % 0.7 % (0-4); Lymphocytes # 1.4 K/mcL (0.6-4.6); Lymphocytes % 8.4 %; Mean Corpuscular HGB Conc 32.1 g/dL (31.6-35.5); Mean Corpuscular Hemoglobin 32.7 pg (28.0-33.3); Monocytes # 0.8 K/mcL (0.0-1.3); Platelet Count 272 K/mcL (140-400); Red Cell Distribution Width 12.1 % (11.5-14.5); Segmented Neutrophils % 85.2 %; White Blood Count 16.4 K/mcL (4.3-11.1)
[2022-06-11 08:00] LABS: INR 1.9
[2022-06-11 08:17] LABS: Calcium 9.3 mg/dL (8.6-10.3); Potassium 4.5 mEq/L (3.5-5.1)
[2022-06-11] MEDS: Topiramate 25 MG TABLET PO SCH (09:18)
[2022-06-11] MEDS: amLODIPine 5 MG TABLET PO SCH (09:18)
[2022-06-11] MEDS: Sennosides/Docusate Sodium TABLET PO SCH ×2 (09:18→21:25)
[2022-06-11] MEDS: Multivit/Ca/Min/Fe/FA 1 TAB TABLET PO SCH (09:19)
[2022-06-11] MEDS: Cyanocobalamin (B-12) 1,000 MCG TABLET PO SCH (09:19)
[2022-06-11] MEDS: Metoprolol 100 MG TABLET PO SCH ×2 (09:19→21:25)
[2022-06-11] MEDS: polyethylene glycoL 3350 17 GM POWD.PACK PO SCH (09:25)
[2022-06-11] MEDS: tiZANidine 4 MG TABLET PO PRN (12:36)
[2022-06-11] MEDS: Acetaminophen 325 MG TABLET PO PRN (12:36)
[2022-06-11] MEDS ORDERED: *HR* Warfarin 3 MG TABLET PO ONE (18:00)
[2022-06-12] MEDS: Levothyroxine 25 MCG TABLET PO SCH (07:00)
[2022-06-12 07:36] LABS: Basophils # 0.1 K/mcL (0.0-0.2); Basophils % 0.5 %; Eosinophils # 0.2 K/mcL (0.0-0.6); Eosinophils % 1.1 %; Hematocrit 41.9 % (35.3-44.9); Hemoglobin 13.5 g/dL (11.5-15.4); Immature Granulocytes % 0.4 % (0-4); Lymphocytes # 1.7 K/mcL (0.6-4.6); Lymphocytes % 12.9 %; Mean Corpuscular HGB Conc 32.2 g/dL (31.6-35.5); Mean Corpuscular Hemoglobin 32.8 pg (28.0-33.3); Mean Corpuscular Volume 101.9 fL (83.0-100.0); Monocytes # 0.9 K/mcL (0.0-1.3); Monocytes % 6.5 %; Neutrophils # 10.5 K/mcL (1.6-8.9); Platelet Count 275 K/mcL (140-400); Red Blood Count 4.11 M/mcL (3.82-4.97); Red Cell Distribution Width 12.2 % (11.5-14.5); Segmented Neutrophils % 78.6 %; White Blood Count 13.3 K/mcL (4.3-11.1)
[2022-06-12 07:57] LABS: INR 1.9
[2022-06-12 08:04] LABS: Calcium 9.7 mg/dL (8.6-10.3); Potassium 4.5 mEq/L (3.5-5.1)
[2022-06-12] MEDS: Sennosides/Docusate Sodium TABLET PO SCH ×2 (08:54→21:22)
[2022-06-12] MEDS: polyethylene glycoL 3350 17 GM POWD.PACK PO SCH (08:54)
[2022-06-12] MEDS: Multivit/Ca/Min/Fe/FA 1 TAB TABLET PO SCH (08:54)
[2022-06-12] MEDS: Metoprolol 100 MG TABLET PO SCH ×2 (08:55→21:23)
[2022-06-12] MEDS: Cyanocobalamin (B-12) 1,000 MCG TABLET PO SCH (08:55)
[2022-06-12] MEDS: amLODIPine 5 MG TABLET PO SCH (08:55)
[2022-06-12] MEDS: Topiramate 25 MG TABLET PO SCH (08:56)
[2022-06-12 11:00] LABS: Bilirubin,Urine Negative (Negative); Blood,Urine Negative (Negative); Clarity,Urine Clear (Clear); Color,Urine Yellow (Yellow); Glucose,Urine (UA) Normal (Normal); Ketones,Urine Negative (Negative); Leukocyte Esterase,Urine Small (Negative); Nitrite,Urine Negative (Negative); PH,Urine 6.5 pH Units (5.0-8.0); Protein,Urine Negative (Neg-Trace); Urobilinogen,Urine Normal (Normal)
[2022-06-12 11:10] LABS: Bacteria,Urine Few per hpf (None-Few); Squamous Epithelial Cell,Urine Few per hpf (None-Few)
[2022-06-12] MEDS: Nitrofurantoin (BID) 100 MG CAPSULE PO SCH (16:10)
[2022-06-12] MEDS ORDERED: *HR* Warfarin 5 MG TABLET PO ONE (18:00)
[2022-06-12] MEDS: Acetaminophen 325 MG TABLET PO PRN (19:17)
[2022-06-13] MEDS: Levothyroxine 25 MCG TABLET PO SCH (05:24)
[2022-06-13 07:55] LABS: Basophils % 0.4 %; Eosinophils # 0.1 K/mcL (0.0-0.6); Eosinophils % 1.3 %; Hematocrit 38.9 % (35.3-44.9); Hemoglobin 13.1 g/dL (11.5-15.4); Immature Granulocytes % 0.6 % (0-4); Lymphocytes # 1.9 K/mcL (0.6-4.6); Lymphocytes % 17.9 %; Mean Corpuscular HGB Conc 33.7 g/dL (31.6-35.5); Mean Platelet Volume 10.4 fL (9.4-12.4); Monocytes # 0.8 K/mcL (0.0-1.3); Monocytes % 7.5 %; Neutrophils # 7.5 K/mcL (1.6-8.9); Platelet Count 284 K/mcL (140-400); Red Blood Count 3.85 M/mcL (3.82-4.97); Red Cell Distribution Width 11.9 % (11.5-14.5); Segmented Neutrophils % 72.3 %; White Blood Count 10.4 K/mcL (4.3-11.1)
[2022-06-13] MEDS: polyethylene glycoL 3350 17 GM POWD.PACK PO SCH (08:03)
[2022-06-13] MEDS: amLODIPine 5 MG TABLET PO SCH (08:03)
[2022-06-13] MEDS: Acetaminophen 325 MG TABLET PO PRN (08:04)
[2022-06-13] MEDS: Topiramate 25 MG TABLET PO SCH (08:04)
[2022-06-13] MEDS: tiZANidine 4 MG TABLET PO PRN (08:04)
[2022-06-13] MEDS: Metoprolol 100 MG TABLET PO SCH ×2 (08:04→21:59)
[2022-06-13] MEDS: Nitrofurantoin (BID) 100 MG CAPSULE PO SCH ×2 (08:04→16:40)
[2022-06-13] MEDS: Sennosides/Docusate Sodium TABLET PO SCH ×2 (08:05→21:59)
[2022-06-13] MEDS: Multivit/Ca/Min/Fe/FA 1 TAB TABLET PO SCH (08:05)
[2022-06-13] MEDS: Cyanocobalamin (B-12) 1,000 MCG TABLET PO SCH (08:05)
[2022-06-13 08:20] LABS: INR 2.4; Prothrombin Time 26.6 Seconds (9.4-12.1)
[2022-06-13 08:31] LABS: Calcium 9.5 mg/dL (8.6-10.3); Potassium 3.9 mEq/L (3.5-5.1)
[2022-06-13] MEDS ORDERED: Moderna Covid-19 Vaccine 100MCG/0.5mL IM ONE (14:42)
[2022-06-13 17:46] LABS: Influenza A PCR Negative (Negative); Influenza B PCR Negative (Negative); Resp. Syncytial Virus PCR Negative (Negative)
[2022-06-13 17:48] LABS: SARS-CoV-2 by PCR (In House) Negative (Negative)
[2022-06-13] MEDS ORDERED: *HR* Warfarin 2.5 MG TABLET PO ONE (18:00)
[2022-06-14] MEDS: Acetaminophen 325 MG TABLET PO PRN ×2 (05:18→21:22)
[2022-06-14] MEDS: Levothyroxine 25 MCG TABLET PO SCH (05:19)
[2022-06-14 08:00] LABS: INR 2.4; Prothrombin Time 26.4 Seconds (9.4-12.1)
[2022-06-14] MEDS: Multivit/Ca/Min/Fe/FA 1 TAB TABLET PO SCH (08:13)
[2022-06-14] MEDS: Topiramate 25 MG TABLET PO SCH (08:13)
[2022-06-14] MEDS: amLODIPine 5 MG TABLET PO SCH (08:13)
[2022-06-14] MEDS: Sennosides/Docusate Sodium TABLET PO SCH ×2 (08:14→21:22)
[2022-06-14] MEDS: Cyanocobalamin (B-12) 1,000 MCG TABLET PO SCH (08:14)
[2022-06-14] MEDS: Nitrofurantoin (BID) 100 MG CAPSULE PO SCH ×2 (08:14→16:27)
[2022-06-14] MEDS: polyethylene glycoL 3350 17 GM POWD.PACK PO SCH (08:14)
[2022-06-14] MEDS: Metoprolol 100 MG TABLET PO SCH ×2 (08:14→21:23)
[2022-06-14] MEDS ORDERED: *HR* Warfarin 5 MG TABLET PO ONE (18:00)
[2022-06-15] MEDS: Levothyroxine 25 MCG TABLET PO SCH (05:24)
[2022-06-15 07:39] VITALS: BP 115/75; PULSE 72; RESP 15; TEMP 98.2; O2SAT 93
[2022-06-15 08:10] LABS: INR 2.8; Prothrombin Time 30.5 Seconds (9.4-12.1)
[2022-06-15] MEDS: Cyanocobalamin (B-12) 1,000 MCG TABLET PO SCH (09:16)
[2022-06-15] MEDS: Nitrofurantoin (BID) 100 MG CAPSULE PO SCH (09:16)
[2022-06-15] MEDS: Metoprolol 100 MG TABLET PO SCH (09:16)
[2022-06-15] MEDS: Multivit/Ca/Min/Fe/FA 1 TAB TABLET PO SCH (09:16)
[2022-06-15] MEDS: tiZANidine 4 MG TABLET PO PRN (09:17)
[2022-06-15] MEDS: Topiramate 25 MG TABLET PO SCH (09:17)
[2022-06-15] MEDS: amLODIPine 5 MG TABLET PO SCH (09:17)
[2022-06-15] MEDS: polyethylene glycoL 3350 17 GM POWD.PACK PO SCH (09:17)
[2022-06-15] MEDS: Sennosides/Docusate Sodium TABLET PO SCH (09:17)
[2022-06-15 13:26] LABS: Influenza A PCR Negative (Negative); Influenza B PCR Negative (Negative); Resp. Syncytial Virus PCR Negative (Negative)
[2022-06-15 14:21] LABS: SARS-CoV-2 by PCR (In House) Negative (Negative)
[2022-06-15] MEDS ORDERED: *HR* Warfarin 1 MG TABLET PO ONE (18:00)
== END 2022-06-15 17:30 | DRG 690 ==
LOC: INPPIK 22:45
PROVIDERS: ADMIT Internal Medicine; ATTEND Internal Medicine